=== PATIENT | female | born 1950 | race Caucasian/White ===

== ENCOUNTER → 2021-03-18 | Outpatient (CLI) | payer MEDICARE ==
[~2021-03-18] MED LIST: ASPIRIN81 MG PO; CELEXA40 MG PO; CLINDAMYCIN HC300 MG PO; FENOFIBRATE160 MG PO; HYDROCHLOROTH12.5 MG PO; HYDROCODON-ACE1 EAC4 PO; JANUVIA100 MG PO; KLONOPIN1 MG PO; LIPITOR80 MG PO; NEURONTIN400 MG PO; NORCO 5-325 TA1 EACH PO; NORVASC5 MG PO; OXYCODONE HCL5 MG PO; PEPCID40 MG PO; PROMETHAZINE HC25 M1 PO; SYNTHROID75 MCG PO; TOPROL XL100 MG PO; TRESIBA FL100 UNIT/1 SQ; ULTRAM50 MG PO; ZANAFLEX4 M1 PO; ZESTRIL40 MG PO; ZOFRAN ODT 4 MG4 MG PO
== END ==
LOC: KOH-I 03-04 15:00
DX: M81.0 Age-related osteoporosis without current pathological fracture (principal)
CPT/HCPCS: 77080

== ENCOUNTER → 2021-09-01 | Outpatient (CLI) | payer MEDICARE | LOC: KOH-I 08-13 15:00 | DX: Z13.6 Encounter for screening for cardiovascular disorders (principal); F17.200 Nicotine dependence, unspecified, uncomplicated | CPT/HCPCS: 71271; 76706-PO ==

== ENCOUNTER → 2021-11-11 | Outpatient (CLI) | payer MEDICARE | LOC: MAMO 11-02 14:00 | DX: Z12.31 Encounter for screening mammogram for malignant neoplasm of breast (principal) | CPT/HCPCS: 77063; 77067 ==

== ENCOUNTER → 2021-11-30 | Outpatient (CLI) | payer MEDICARE | LOC: MAMO 11:53 | DX: R92.8 Other abnormal and inconclusive findings on diagnostic imaging of breast (principal) | CPT/HCPCS: 76642-RT; 77065; G0279 ==